=== PATIENT | female | born 1975 | race Caucasian/White ===

== ENCOUNTER 2017-11-25 23:15 | Emergency (ER) | payer OTHER ==
--- NOTE | 2017-11-25 23:36 | CPEKG ---
Heart Rate: 88 RR Interval: 682 P-R Interval: 164 QRSD Interval: 100 QT Interval: 372 QTC Interval: 450 P [place]: 46 QRS [place]: 42 T Wave [place]: 43 EKG Severity - ABNORMAL ECG - EKG Impression: SINUS RHYTHM EKG Impression: PROBABLE LEFT ATRIAL ABNORMALITY Electronically Signed By: Malia De León 26-Nov-2017 07:07:48
--- NOTE | 2017-11-25 23:39 | EDPHY ---
H & P Stated Complaint: BRUISE,SORE CALF BEHIND L KNEE/CP,SOB Time Seen by Provider: 11/25/17 23:30 HPI/ROS: CHIEF COMPLAINT: Left leg pain, dyspnea, concerns over DVT/PE HISTORY OF PRESENT ILLNESS: 42-year-old female with no prior history of DVT or PE or underlying coagulopathic disorder has been traveling frequently recently, has noticed a progressively enlarging and painful left popliteal lesion over the past few weeks and has also noticed 2-3 days of pleuritic left-sided chest pain and dyspnea No syncope or near syncope. No headache. Abdominal pain. No trauma. No cigarette use. No illicit drug use. REVIEW OF SYSTEMS: A ten point review of systems was performed and is negative with the exception of the items mentioned in the HPI PAST MEDICAL & SURGICAL HISTORY: No pertinent medical or surgical history SOCIAL HISTORY: Visiting from [place]. PHYSICAL EXAM (Prior to examination, patient consented to physical exam, hands were washed and my usual and customary physical exam procedures followed) 1) GENERAL: Well-developed, well-nourished, alert and oriented. Appears to be in no acute distress. 2) HEAD: Normocephalic, atraumatic 3) HEENT: Pupils equal, round, reactive to light bilaterally. Sclera anicteric. Nasopharynx, oropharynx, clear, no lesions. Moist mucous membranes 4) NECK: Full range of motion, no meningeal signs. 5) LUNGS: Clear auscultation bilaterally, no wheezes, no rhonchi, no retractions. 6) HEART: Regular rate and rhythm, no murmur, no heave, no gallop. 7) ABDOMEN: No guarding, no rebound, no focal tenderness, negative McBurney's, negative Kraus's, negative Rovsing's, negative peritoneal sign, 8) MUSCULOSKELETAL: Left lower extremity: Left popliteal tenderness, ecchymosis , varicosity noted. Soft compartments. Moving all extremities, no focal areas of tenderness, no obvious trauma. No peripheral edema or discoloration. 9) BACK: No CVA tenderness, no midline vertebral tenderness, no fluctuance, no step-off, no obvious trauma, no visual or palpable abnormality. 10) SKIN: No rash, no petechiae. 11) Psychiatric: Patient is oriented X 3, there is no agitation. DIFFERENTIAL DIAGNOSIS: In no particular order including but not limited to pulmonary embolus, [place], DVT, cellulitis, - Personal History LMP (Females 10-55): Over 28 Days Ago Current Tetanus Diphtheria and Acellular Pertussis (TDAP): Unsure - Medical/Surgical History Hx Asthma: No Hx Chronic Respiratory Disease: No Hx Diabetes: No Hx Cardiac Disease: No Hx Renal Disease: No Hx Cirrhosis: No Hx Alcoholism: No Hx HIV/AIDS: No Hx Splenectomy or Spleen Trauma: No Other PMH: DEONNA SX - Social History Smoking Status: Never smoked Constitutional: Initial Vital Signs Temperature (C) 36.7 C 11/25/17 23:25 Heart Rate 97 11/25/17 23:25 Respiratory Rate 16 11/25/17 23:25 Blood Pressure 136/86 H 11/25/17 23:25 O2 Sat (%) 98 11/25/17 23:25 O2 Delivery Mode Room Air Allergies/Adverse Reactions: No Known Allergies Allergy (Unverified 11/25/17 23:25) Home Medications: Medication Instructions Recorded Hormone Replacement 11/25/17 Medical Decision Making - Diagnostics Imaging Results: Imaging Impressions Chest X-Ray 11/25/17 23:36 Impression: No evidence of acute cardiopulmonary abnormality. Images reviewed myself in ED Course/Re-evaluation: Patient was re-evaluated with serial examinations. Discussed her imaging results showing negative DVT study. Addition she is noted to have negative D- dimer which I think adequately excludes pulmonary embolus in this patient whom I have a moderate pretest suspicion. We discussed her negative chest x-ray, EKG showing sinus rhythm. She has soft compartments of lower extremity with no evidence of compartment syndrome. She also has a low risk car pathway score, negative troponin after being symptomatic for multiple days. I think this adequately excludes acute myocardial injury patient feels comfortable being discharged. I saw this patient independently based on established practice protocols. Care of patient under supervision of secondary supervising physician Dr Malia De León with whom I discussed case.. - Data Points Laboratory Results: Laboratory Results 11/25/17 23:35 11/25/17 23:35 11/26/17 11/25/17 11/25/17 00:28 23:42 23:35 WBC RBC Hgb Hct MCV MCH MCHC RDW Plt Count MPV Neut % (Auto) Lymph % (Auto) [place] % (Auto) Eos % (Auto) Baso % (Auto) Nucleat RBC Rel Count Absolute Neuts (auto) Absolute Lymphs (auto) Absolute Monos (auto) Absolute Eos (auto) Absolute Basos (auto) Absolute Nucleated RBC Immature Gran % Immature Gran # RBC/WBC/PLT Morphology Atypical Lymphocytes Platelet Estimate D-Dimer Sodium Potassium Chloride Carbon Dioxide Anion Gap BUN Creatinine Estimated GFR Glucose Calcium POC Troponin I 0.00 ng/mL ng/mL 0.01 ng/mL ng/mL (0.00-0.08) (0.00-0.08) Beta HCG, Qual NEGATIVE 11/25/17 11/25/17 11/25/17 23:35 23:35 23:35 WBC 12.84 10^3/uL H 10^3/uL (3.80-9.50) RBC 4.18 10^6/uL 10^6/uL (4.18-5.33) Hgb 12.8 g/dL g/dL (12.6-16.3) Hct 38.1 % % (38.0-47.0) MCV 91.1 fL fL (81.5-99.8) MCH 30.6 pg pg (27.9-34.1) MCHC 33.6 g/dL g/dL (32.4-36.7) RDW 12.5 % % (11.5-15.2) Plt Count 341 10^3/uL 10^3/uL (150-400) MPV 8.7 fL fL (8.7-11.7) Neut % (Auto) 52.5 % % (39.3-74.2) Lymph % (Auto) 38.7 % % (15.0-45.0) [place] % (Auto) 6.1 % % (4.5-13.0) Eos % (Auto) 1.6 % % (0.6-7.6) Baso % (Auto) 0.8 % % (0.3-1.7) Nucleat RBC Rel Count 0.0 % % (0.0-0.2) Absolute Neuts (auto) 6.74 10^3/uL H 10^3/uL (1.70-6.50) Absolute Lymphs (auto) 4.97 10^3/uL H 10^3/uL (1.00-3.00) Absolute Monos (auto) 0.78 10^3/uL 10^3/uL (0.30-0.80) Absolute Eos (auto) 0.21 10^3/uL 10^3/uL (0.03-0.40) Absolute Basos (auto) 0.10 10^3/uL 10^3/uL (0.02-0.10) Absolute Nucleated RBC 0.00 10^3/uL 10^3/uL (0-0.01) Immature Gran % 0.3 % % (0.0-1.1) Immature Gran # 0.04 10^3/uL 10^3/uL (0.00-0.10) RBC/WBC/PLT Morphology TNP Atypical Lymphocytes 1+ H Platelet Estimate TNP D-Dimer < 0.27 ug/mLFEU ug/mLFEU (0.00-0.50) Sodium 137 mEq/L mEq/L (135-145) Potassium 3.6 mEq/L mEq/L (3.3-5.0) Chloride 106 mEq/L mEq/L (97-110) Carbon Dioxide 26 mEq/l mEq/l (22-31) Anion Gap 5 mEq/L L mEq/L (8-16) BUN 15 mg/dL mg/dL (7-23) Creatinine 0.8 mg/dL mg/dL (0.6-1.0) Estimated GFR > 60 Glucose 103 mg/dL H mg/dL (70-100) Calcium 9.3 mg/dL mg/dL (8.5-10.4) POC Troponin I Beta HCG, Qual Point of Care Test Results: Chemistry 11/26/17 11/25/17 00:28 23:42 POC Troponin I 0.00 ng/mL ng/mL 0.01 ng/mL ng/mL (0.00-0.08) (0.00-0.08) Departure - Departure Disposition: Home, Routine, Self-Care Clinical Impression: Chest pain Qualifiers: Chest pain type: other chest pain Qualified Code(s): R07.89 - Other chest pain ; R07.8 - Other chest pain Varicose vein of leg Qualifiers: Varicose vein complication: inflammation Laterality: left Qualified Code(s): I83.12 - Varicose veins of left lower extremity with inflammation Condition: Good Instructions: Venous Insufficiency (DC) Additional Instructions: When traveling on an airplane or other enclosed space I recommend you wear compression stockings, walk when possible and pump your legs. Referrals: Follow-up, with your pcp in [place] in 3-5 days [Other] - As per Instructions
[2017-11-25 23:46] LABS: PLATELET COUNT 341 10^3/uL (150-400)
[2017-11-26 00:53] VITALS: BP 117/73
--- NOTE | 2017-11-27 09:28 | CPEKG ---
Heart Rate: 84 RR Interval: 714 P-R Interval: 164 QRSD Interval: 98 QT Interval: 384 QTC Interval: 454 P [place]: 47 QRS [place]: 43 T Wave [place]: 44 EKG Severity - NORMAL ECG - EKG Impression: SINUS RHYTHM Electronically Signed By: Herve Young 27-Nov-2017 10:58:13
== END 2017-11-26 01:16 | disposition home or self-care (01) ==
DX: R07.89 Other chest pain (principal); I83.12 Varicose veins of left lower extremity with inflammation
CPT/HCPCS: 84484-PO